=== PATIENT | male | born 1985 | race Caucasian/White ===

== ENCOUNTER → 2023-10-30 | Outpatient (CLI) | payer BC ==
[2023-10-30 07:55] LABS: BASO % 0.4 % (0.0-1.0); EOS # 0.3 10*3/uL (0.0-0.4); EOS % 2.7 % (1.0-4.0); HEMATOCRIT 34.8 % (42.0-52.0); LYMPH # 2.9 10*3/uL (1.3-4.4); LYMPH % 30.2 % (27.0-41.0); MEAN CELL VOLUME 72.7 fl (80.0-94.0); MEAN CORPUSCULAR HGB 21.7 pg (27.0-31.0); MEAN CORPUSCULAR HGB CONC 29.9 g/dl (33.0-37.0); MEAN PLATELET VOLUME 8.9 fl (9.6-12.3); MONO # 0.9 10*3/uL (0.1-1.0); MONO % 9.5 % (3.0-9.0); NEUT # 5.5 10*3/uL (2.3-7.9); PLATELET COUNT AUTOMATED 328 10*3/uL (130-400); RED BLOOD COUNT 4.79 10*6/uL (4.50-5.90); RED CELL DISTRI WIDTH 16.3 % (0-14.5); WHITE BLOOD COUNT 9.6 10*3/uL (4.8-10.8)
[2023-10-30 08:30] LABS: ALKALINE PHOSPHATASE 90 U/L (46-116); BUN 13 mg/dl (9-23); CHLORIDE 102 mmol/L (98-107); LIPASE 29 U/L (12-53); POTASSIUM 3.7 mmol/L (3.4-5.1); SGPT/ALT 8 U/L (5-49); TOTAL PROTEIN 8.2 gm/dL (6.0-8.0)
[2023-10-31 16:08] LABS: t-TRANSGLUTAMINASE (tTG) IGA <2 U/mL (0-3); t-TRANSGLUTAMINASE (tTG) IgG 3 U/mL (0-5)
== END | disposition home or self-care (01) ==
LOC: LAB 07:37
PROVIDERS: ATTEND Nurse Practitioner Family
DX: R53.83 Other fatigue (principal); R10.9 Unspecified abdominal pain; R19.7 Diarrhea, unspecified

== ENCOUNTER → 2024-03-02 | Outpatient (CLI) | payer BC ==
[~2024-03-02] MED LIST: BARIUM SULFATE 60% 355 ML BOT PO ONE
== END | disposition home or self-care (01) ==
LOC: RAD 01-20 09:00
PROVIDERS: ATTEND Specialist
DX: K50.90 Crohn's disease, unspecified, without complications (principal); K59.89 Other specified functional intestinal disorders